=== PATIENT | male | born 1960 | race Caucasian/White ===

== ENCOUNTER 2024-12-29 16:59 | Emergency (ER) | payer MEDICARE, SELFPAY ==
[2024-12-29 16:59] VITALS: BP 142/88; PULSE 98; RESP 18; TEMP 36.4; O2SAT 95
[2024-12-29 17:00] VITALS: O2SAT 99
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
[2024-12-29] MEDS: ONDANSETRON HCL ODT 4 MG TABLET PO (17:25)
[2024-12-29] MEDS: HYDROmorphone HCL INJ (*CRX) 2 MG/ML VIAL 0.5 MG IM (17:25)
[2024-12-29 17:34] VITALS: BP 129/75; PULSE 79; RESP 16; O2SAT 100
[2024-12-29 17:41] LABS: Glucose Point of Care 146 mg/dl (65-105)
[2024-12-29 17:49] VITALS: BP 118/69; PULSE 98; RESP 16; O2SAT 94
--- OUTSIDE RECORDS SUMMARY | 2024-12-29 17:59 | XMS_ITS | Clinical Summary ---
Author Organization [facility] Address [facility] [place] [address] Care Team Providers Care Wire Brush Operator Name Role Phone George Vergara MD Primary Care Provider [phone] Allergies No known active allergies Medications metFORMIN ER 500 MG 24 hr tablet Take 2 tablets (1,000 mg total) by mouth 2 (two) times a day. Active glipiZIDE XL 10 MG 24 hr tablet Take 1 tablet (10 mg total) by mouth 2 (two) times daily. 09/23/2024 Active Encounters Date Type Department Care Team Description 10/29/2024 9:04 AM ACCOUNT MANAGEMENT ASSISTANT - 10/29/2024 9:41 AM [facility] [place] [address] [place] [address] Oj Marroquin MD COLONOSCOPY WITH COLD SNARE POLYPECTOMIES 10/29/2024 9:04 AM [facility] Anesthesia Event [facility] [address] [place] [address] Dennise Orta, NENITA 10/29/2024 8:16 AM ACCOUNT MANAGEMENT ASSISTANT - 10/29/2024 10:17 AM [facility] Hospital Encounter [facility] [address] [place] [address] Oj Marroquin MD Discharge Disposition: Home or Self Care (Routine Discharge) 10/29/2024 Travel 10/14/2024 Travel from Last 3 Months Social History Tobacco Use Types Packs/Day Years Used Date Smoking Tobacco: Never Smokeless Tobacco: Never Alcohol Use Standard Drinks/Week Comments Yes 0 (1 standard drink = 0.6 oz pur e alcohol) once every couple weeks Sex and Gender Information Value Date Recorded Sex Assigned at Not on file Legal Sex Male 11:16 PM ACCOUNT MANAGEMENT ASSISTANT Gender Identity Not on file Sexual Orientation Not on file Last Filed Vital Signs Vital Sign Reading Time Taken Comments Blood Pressure 134/66 10/29/2024 9:55 AM ACCOUNT MANAGEMENT ASSISTANT Pulse 76 10/29/2024 9:55 AM ACCOUNT MANAGEMENT ASSISTANT Temperature 36.1 C (97 F) 10/29/2024 9:55 AM ACCOUNT MANAGEMENT ASSISTANT Respiratory Rate 16 10/29/2024 9:55 AM ACCOUNT MANAGEMENT ASSISTANT Oxygen Saturation 100% 10/29/2024 9:55 AM ACCOUNT MANAGEMENT ASSISTANT Inhaled Oxygen Concentration - - Weight 95.3 kg (210 lb) 10/29/2024 8:38 AM ACCOUNT MANAGEMENT ASSISTANT Height 180.3 cm (5' 11 ) 10/29/2024 8:38 AM ACCOUNT MANAGEMENT ASSISTANT Body Mass Index 29.29 10/29/2024 8:38 AM ACCOUNT MANAGEMENT ASSISTANT Plan of Treatment Health Maintenance Due Date Last Done Comments Hepatitis C 1977 DTaP, Tdap and Td Vaccines (1 - Tdap) 1978 Zoster Vaccines (1 of 2) 2009 COVID-19 Vaccine (1 - season) 2024 Influenza Adult (#1) 2024 Pneumococcal Vaccine: 65+ Years (1 of 1 - PCV) 2024 RSV Immunization or 60+ Years (1 - 1-dose 75+ series) 2034 Colorectal Cancer Screening Colonoscopy (10 Years) 10/29/2034 10/29/2024, 10/29/2024, 06/23/2020, Additional history exists Meningococcal B Vaccine Aged Out No l onger eligible based on patient's age to complete this topic Meningococcal Vaccine Aged Out No rosario tesfaye eligible based on patient's age to complete this topic Pneumococcal Vaccine: Pediatrics (0 to 5 Years) and At-Risk Patients (6 to 64 Years) Aged Out No longer eligible based on patient's age to complete this topic RSV Immunizations Under 20 Months Aged Out No longer eligible based on patient's age to complete this topic Procedures Procedure Name Priority Date/Time Associated Diagnosis Comments COLONOSCOPY DIAGNOSTIC WITH/WITHOUT SPECIMEN BRUSH/WASH 10/29/2024 8:59 AM ACCOUNT MANAGEMENT ASSISTANT FAMILY H/O COLON CANCER POCT GLUCOSE - BAILEY DOCKED DEVICE Routine 10/29/2024 8:51 AM ACCOUNT MANAGEMENT ASSISTANT COLONOSCOPY 10/29/2024 6:54 AM ACCOUNT MANAGEMENT ASSISTANT PATHOLOGY Routine 10/29/2024 12:00 AM ACCOUNT MANAGEMENT ASSISTANT from Last 3 Months Results * (ABNORMAL) POCT glucose (10/29/2024 8:51 AM ACCOUNT MANAGEMENT ASSISTANT) GLUCOSE POC 173(H) 70 - 99 MG/DL 10/29/2024 8:56 AM ACCOUNT MANAGEMENT ASSISTANT [facility] 10/29/2024 8:51 AM ACCOUNT MANAGEMENT ASSISTANT Oj Marroquin MD POCT ORDERABLES - DEVICE [place] l Result [facility] [address] [place] [address], * Colonoscopy (10/29/2024 6:54 AM ACCOUNT MANAGEMENT ASSISTANT) Oj Marroquin MD GI PROCEDURE ORDERABLES Final Result * Pathology (10/29/2024 12:00 AM ACCOUNT MANAGEMENT ASSISTANT) PATHOLOGY [facility] Department of Laboratory Medicine [address] [place] [phone] , extension [id number] Pathology Report Surgical Pathology Report Name: JIM SPRINGER Specimen #: [id number] Age: 10 1960 (Age: 64) Location: [facility] Sex: M Procedure Date: 10/29/2024 Hospital #: [id number] Date Received: 10/29/2024 Date Reported: 11/01/2024 Provider: OJ MARROQUIN MD Source: A: Colon, transverse, polyp B: Colon, cecum, polyp C: Colon, descending, polyp Clinical History: Family history of colon cancer. FINAL DIAGNOSIS: A. Colon, transverse polyp, polypectomy: -Fragments of tubular adenoma. B. Colon, cecal polyp, polypectomy: -Fragments of tubular adenoma. C. Colon, descending polyp, polypectomy: -Tubular adenoma. Gross Description: A. Received in formalin, labeled with a patient label and as transverse polyp are 2 pink-estrada polyps 0.3 and 0.4 cm. A base is not identified on either polyp. The larger polyp is bisected. The specimen is entirely submitted in cassette A1. B. Received in formalin, labeled with a patient label and as cecal polyp are 5 pieces of disrupted pink-estrada polypoid tissue ranging from 0.1 to 0.7 cm. The largest piece is bisected. The specimen is entirely submitted in cassette B1. C. Received in formalin, labeled with a patient label and as descending polyp are 2 pieces of disrupted estrada polypoid tissue 0.5 and 0.8 cm. The specimen is entirely submitted in cassette C1. Gross examination (when applicable), interpretation, and sign out were performed at [facility], [address] [place] [address]. Electronically Signed Out BRIDGETTE COBIAN MD [facility] TISSUE COLON STRUCTURE / Unknown 10/29/2024 9:11 AM ACCOUNT MANAGEMENT ASSISTANT Tissue specimen (specimen) COLON STRUCTURE / Unknown 10/29/2024 9:16 AM ACCOUNT MANAGEMENT ASSISTANT Tissue specimen (specimen) COLON STRUCTURE / Unknown 10/29/2024 9:23 AM ACCOUNT MANAGEMENT ASSISTANT Oj Marroquin MD PATHOLOGY/CYTOLOGY ORDERABLES Final Result Performing Organization Address City/State/[facility] Co de Phone Number [facility] [address] [place] [address], [id number] from Last 3 Months Insurance MEDICARE RADHA Care Teams Wire Brush Operator Relationship Specialty Start Date End Date George Vergara MD [address] [place] [phone] PCP - General FAMILY PRACTICE 06/20/20
== END 2024-12-29 17:51 | disposition home or self-care (01) ==
PROVIDERS: Emergency Provider Internal Medicine Critical Care Medicine; PCP Family Medicine
DX: T20.10XA Burn of first degree of head, face, and neck, unspecified site, initial encounter (principal); T20.17XA Burn of first degree of neck, initial encounter; T22.10XA Burn of first degree of shoulder and upper limb, except wrist and hand, unspecified site, initial encounter; T31.0 Burns involving less than 10% of body surface; E11.9 Type 2 diabetes mellitus without complications; X08.8XXA Exposure to other specified smoke, fire and flames, initial encounter
CPT/HCPCS: 82948; 96372; 99283; A9270; J1171